=== PATIENT | female | born 1940 | race Two or more races ===

== ENCOUNTER 2021-02-16 22:36 | Inpatient (IN) | payer OTHER ==
[~2021-02-16] VITALS: Ht 142.2 cm; Wt 64.9 kg
[2021-02-19] MEDS ORDERED: GABAPENTIN300 M2 (08:04)
[2021-02-19] MEDS ORDERED: PANTOPRAZOLE SO40 MG (08:04)
[2021-02-19] MEDS ORDERED: FENOFIBRATE134 MG (08:04)
[2021-02-19] MEDS ORDERED: TELMISARTAN-HC1 EACH (08:04)
[2021-02-19] MEDS ORDERED: HYDRODIURIL12.5 MG (08:04)
[2021-02-19] MEDS ORDERED: ARTHRITIS PAIN650 M1 (08:04)
[2021-02-19] MEDS ORDERED: B-12500 MCG (08:05)
== END 2021-02-19 16:24 | disposition home or self-care (01) | DRG 390 ==
LOC: ER 22:36 → SURG 02-17 03:52
PROVIDERS: ADMIT Colon & Rectal Surgery; ATTEND Colon & Rectal Surgery
PROC: BW21ZZZ Computerized Tomography (CT Scan) of Abdomen and Pelvis (ICD-10-PCS; principal; 2021-02-17)
DX: K56.690 Other partial intestinal obstruction (principal); R10.31 Right lower quadrant pain; Z20.822 Contact with and (suspected) exposure to COVID-19

== ENCOUNTER 2021-05-10 08:25 | Inpatient (IN) | payer OTHER ==
[~2021-05-10] VITALS: Ht 157.5 cm; Wt 61.7 kg
[~2021-05-10 08:25] MED LIST: ARTHRITIS PAIN650 M1; B-12500 MCG; FENOFIBRATE134 MG; GABAPENTIN300 M2; HYDRODIURIL12.5 MG; PANTOPRAZOLE SO40 MG; TELMISARTAN-HC1 EACH
[2021-05-11] MEDS ORDERED: GLIMEPIRIDE4 M1 (16:10)
[2021-05-11] MEDS ORDERED: MAGNESIUM OXID500 MG (16:10)
[2021-05-11] MEDS ORDERED: PYRIDOXINE HCL100 MG (16:10)
[2021-05-11] MEDS ORDERED: LEFLUNOMIDE10 MG (16:10)
[2021-05-11] MEDS ORDERED: CLOPIDOGREL BIS75 MG (16:10)
[2021-05-11] MEDS ORDERED: SERTRALINE HCL50 MG (16:11)
[2021-05-11] MEDS ORDERED: FLUOROMETHOLONE5 ML (16:11)
[2021-05-11] MEDS ORDERED: CIPROFLOXACIN500 MG (16:11)
[2021-05-11] MEDS ORDERED: OLOPATADINE HC2.5 ML (16:11)
[2021-05-11] MEDS ORDERED: METHYLPREDNISOLO4 MG (16:11)
== END 2021-05-12 15:10 | disposition home or self-care (01) | DRG 812 ==
LOC: ER 08:25 → MEDI 05-11 08:08 → SEC-K 05-11 08:08 → MEDJ 05-11 08:17 → SEC-K 05-11 11:51 → MEDI 05-11 15:33
PROVIDERS: ADMIT Internal Medicine; ATTEND Internal Medicine
PROC: 30233N1 Transfusion of Nonautologous Red Blood Cells into Peripheral Vein, Percutaneous Approach (ICD-10-PCS; principal; 2021-05-11)
PROC: BW21ZZZ Computerized Tomography (CT Scan) of Abdomen and Pelvis (ICD-10-PCS; 2021-05-11)
DX: D64.9 Anemia, unspecified (principal); K92.2 Gastrointestinal hemorrhage, unspecified; Z20.822 Contact with and (suspected) exposure to COVID-19

== ENCOUNTER 2021-06-19 10:56 | Outpatient (CLI) | payer OTHER ==
[~2021-06-19 10:56] MED LIST changes: +CIPROFLOXACIN500 MG; +CLOPIDOGREL BIS75 MG; +FLUOROMETHOLONE5 ML; +GLIMEPIRIDE4 M1; +LEFLUNOMIDE10 MG; +MAGNESIUM OXID500 MG; +METHYLPREDNISOLO4 MG; +OLOPATADINE HC2.5 ML; +PYRIDOXINE HCL100 MG; +SERTRALINE HCL50 MG
== END 2021-06-19 11:01 | disposition home or self-care (01) ==
LOC: NUCLEAR 10:56
PROVIDERS: ATTEND Internal Medicine
DX: E85.9 Amyloidosis, unspecified (principal)
CPT/HCPCS: 78469; A9538